=== PATIENT | female | born 1990 | race Two or more races ===

== ENCOUNTER 2021-11-24 15:16 | Emergency (ER) | payer MEDICAID, OTHER ==
[~2021-11-24] VITALS: Ht 157.5 cm; Wt 75.3 kg
[2021-11-24 15:18] VITALS: BP 123/71
== END 2021-11-24 17:39 | disposition left against medical advice (07) ==
LOC: ER 15:16
DX: O26.891 Other specified pregnancy related conditions, first trimester (principal); R21 Rash and other nonspecific skin eruption; Z3A.08 8 weeks gestation of pregnancy; Z53.21 Procedure and treatment not carried out due to patient leaving prior to being seen by health care provider